=== PATIENT | female | born 1990 | race Caucasian/White ===

== ENCOUNTER → 2017-11-09 11:05 | Outpatient (CLI) | payer BC, SELFPAY ==
[2017-11-09 11:52] LABS: Appearance Urine UA CLEAR; Bilirubin Urine UA NEGATIVE (NEGATIVE); Color Urine UA YELLOW; Glucose Urine UA NEGATIVE (Normal); Ketones Urine UA TRACE (NEGATIVE); Leukocyte Esterase Urine UA NEGATIVE (NEGATIVE); Nitrite Urine UA Negative (Negative); Occult Blood Urine UA NEGATIVE (Negative); Protein Urine UA NEGATIVE (Negative); Specific Gravity Urine UA 1.015 (1.000-1.035); Urobilinogen Urine UA 0.2 E.U./dL (0.2)
[2017-11-09 12:19] LABS: Add Manual Diff / Slide Review NO; Basophils Percent Auto 0.3 % (0-2); Hemoglobin 12.2 g/dL (12.0-16.0); Lymphocytes Percent Auto 8.8 % (25-40); Mean Corpuscular HGB Conc 35.8 % (30-36); Mean Corpuscular Hemoglobin 32.1 PG (26-34); Mean Corpuscular Volume 89.5 fL (80-100); Monocytes Percent Auto 7.8 % (3-14); Neutrophils Absolute Auto 6600 /uL (3000-5900); Neutrophils Percent Auto 82.1 % (50-75); Platelet Count 267 X10^3/uL (150-400); Red Cell Distribution Width 12.8 % (11.6-14.8); White Blood Cell Count 8.1 X10^3/uL (4.5-11.0)
[2017-11-09 12:30] LABS: Hemoglobin A1C% w Est Avg Glu 4.7 % (4.0-6.0)
[2017-11-09 12:38] LABS: Glucose 72 mg/dL (70-100)
[2017-11-09 17:25] LABS: Hepatitis B Surface Antigen NEGATIVE s/c (NEGATIVE); Rubella Antibody IgG 19.6 IU/mL (>15)
[2017-11-09 17:40] LABS: HIV 1 and 2 Antibody NEGATIVE (NEGATIVE); Hep C Virus Ab w/Reflex Quant NEGATIVE s/c (NEGATIVE)
[2017-11-10 14:10] LABS: HSV 2 IGG AB < 0.90 index (< 0.90); HSV1IGG < 0.90 index (< 0.90)
[2017-11-17 10:56] LABS: Rapid Plasma Reagin NON-REACTIVE
== END ==
DX: Z34.82 Encounter for supervision of other normal pregnancy, second trimester (principal)
CPT/HCPCS: 36415; 80055; 81003; 82947; 83036; 86695; 86696; 86703; 86787; 86803; 86850; 86900; 86901; 87077; 87086

== ENCOUNTER → 2017-12-19 11:10 | Outpatient (CLI) | payer BC, SELFPAY ==
[2017-12-20 08:05] LABS: Strep Grp B PCR NEG for Grp B Strep
== END ==
PROVIDERS: Family Provider Family Medicine; PCP Family Medicine
DX: Z34.83 Encounter for supervision of other normal pregnancy, third trimester (principal)
CPT/HCPCS: 87653

== ENCOUNTER 2018-01-12 20:50 | Outpatient (CLI) | payer BC, SELFPAY ==
--- NOTE | 2018-01-13 17:56 | PM.OBTRLD ---
Visit Information Visit Information Date of evaluation: 01/12/18 Primary OB Provider: Blake Griffiths On-call OB Provider: Geeta Penaloza Reason for Evaluation: Yes rule out labor Vital Signs Vital Signs: Blood pressure 121/79, pulse of 100, temperature 97.8? PFSH Medical History ADHD (attention deficit hyperactivity disorder) (Chronic 2007) Anemia (Chronic 2011) Chronic back pain (Chronic 2009) Chronic headaches (Chronic 1995) Hypertension (Chronic 2011) Migraines (Chronic 1995) Raynaud's phenomenon (Chronic 2008) Scoliosis (Chronic 2007) Anesthesia (Resolved) 2 para 2 (Resolved) Hemorrhagic cystitis (Resolved 2012) Proteinuria (Resolved 2011) Surgical History History of third molar tooth extraction (Resolved) Family History Grandfather Diabetes mellitus Stroke Alzheimer's disease Grandmother Diabetes mellitus Heart disease Hypertension Mother Age: 63 Vestibular disorder Grandfather Cancer Grandmother Cancer Brother No problems noted. Father No problems noted. Evaluation Evaluation Baseline heart rate: 125 Variability: Moderate (11-25) monitor accelerations: Present monitor decelerations: Absent Contraction Frequency (minutes): 9 Uterine Contraction Intensity: Mild Category of Tracing: I Cervical dilation (cm): 2 Diagnosis, Plan/Disposition Final Diagnosis (1) 40 weeks gestation of : Current Visit: No Status: Acute Plan/Disposition Plan: Patient did not change her cervix so in prodrome labor she was discharged home with routine precautions. OB Disposition: home
== END 2018-01-12 23:35 | disposition home or self-care (01) ==
LOC: LABOR 20:56 → OB 01-17 08:50
PROVIDERS: Family Provider Family Medicine; PCP Family Medicine; Visit Provider Specialist
DX: Z34.83 Encounter for supervision of other normal pregnancy, third trimester (principal); Z3A.40 40 weeks gestation of pregnancy
CPT/HCPCS: 59025; G0378; G0379

== ENCOUNTER 2018-01-15 21:13 | Inpatient (IN) | payer BC, SELFPAY ==
[2018-01-15] MEDS: LACTATED RINGERS 1,000 ML 100 ML IV (21:45)
[2018-01-15 23:19] LABS: Add Manual Diff / Slide Review NO; Basophils Percent Auto 0.4 % (0-2); Eosinophils Percent Auto 1.6 % (2-4); Hematocrit 31.4 % (36-46); Lymphocytes Percent Auto 8.8 % (25-40); Mean Corpuscular HGB Conc 35.1 % (30-36); Mean Corpuscular Hemoglobin 31.4 PG (26-34); Mean Corpuscular Volume 89.3 fL (80-100); Monocytes Percent Auto 10.4 % (3-14); Neutrophils Absolute Auto 6400 /uL (3000-5900); Neutrophils Percent Auto 78.8 % (50-75); Platelet Count 201 X10^3/uL (150-400); Red Blood Cell Count 3.51 X10^6/uL (4.0-5.2); Red Cell Distribution Width 12.8 % (11.6-14.8); White Blood Cell Count 8.1 X10^3/uL (4.5-11.0)
[2018-01-16] MEDS: OXYTOCIN 10 UNIT/ML VIAL IM (00:05)
--- NOTE | 2018-01-16 00:25 | P.HPOB_ITS ---
OB HPI Date/Time Date of admission: 01/16/18 Date Patient Seen: 01/16/18 Time Patient Seen: 23:30 History of Present Condition Chief complaint: eval of labor : 4 Para: 2 Estimated Date of Delivery: 01/18/18 Estimated Gestational Age (weeks): 39w4d Narrative: Betsy Van is a 27 year old at 39w4d who presented in active labor with SROM at home. The pt reports feeling a large gush of fluid around 8:45pm. She had been having contractions for the past several days , but they significantly increased in intensity and frequency after the gush. No vaginal bleeding. The pt has been feeling her baby move regularly. History of Present care: limited care, initiated at week # (30) and number of visits (6) Dating criteria: based on LMP only Ultrasounds: normal mid trimester US Obstetrical complications: none Medical complications: other Narrative: Hx of pre-eclampsia Hx of benign heart murmur Bicornuate uterus Raynaud's disease Fibromyalgia Preadmission Labs Blood type: A (+) positive -: Antibody screen: negative, GBS status: negative, HBsAG: negative, HIV: negative, HSV 1: negative, HSV 2: negative and RPR/VDLR: negative -: Chlamydia screen: not detected and Gonorrhea screen: not detected -: Rubella: immune and Varicella: immune HCT: 34 HCAB: negative PAP: Normal Fasting blood glucose: 72 Prior (ies) History: 01/2010 - SAB 10/2011 - 39wk IOL for pre-eclampsia, , 8lb1oz girl 11/2013 - 41wk IOL, , 9lb8oz girl Evaluation Evaluation Baseline heart rate: 120 Variability: Moderate (11-25) monitor accelerations: Present monitor decelerations: Absent Contraction Frequency (minutes): 2 Uterine Contraction Intensity: Strong/Firm Category of Tracing: I Cervical dilation (cm): 4 Cervical effacement (%): 90 station: -1 Laboratory results: Laboratory Tests 01/15/18 01/15/18 21:45 21:45 WBC 8.1 RBC 3.51 L Hgb 11.0 L Hct 31.4 L MCV 89.3 MCH 31.4 MCHC 35.1 RDW 12.8 Plt Count 201 Neut % (Auto) 78.8 H Lymph % (Auto) 8.8 L [place] % (Auto) 10.4 Eos % (Auto) 1.6 L Baso % (Auto) 0.4 Neut # (Auto) 6400 H Blood Type A Positive Antibody Screen Negative Comments: grossly ruptured with clear fluid PFSH Medical History ADHD (attention deficit hyperactivity disorder) (Chronic 2007) Anemia (Chronic 2011) Chronic back pain (Chronic 2009) Chronic headaches (Chronic 1995) Hypertension (Chronic 2011) Migraines (Chronic 1995) Raynaud's phenomenon (Chronic 2008) Scoliosis (Chronic 2007) Anesthesia (Resolved) 2 para 2 (Resolved) Hemorrhagic cystitis (Resolved 2012) Proteinuria (Resolved 2011) Surgical History History of third molar tooth extraction (Resolved) Family History Grandfather Diabetes mellitus Stroke Alzheimer's disease Grandmother Diabetes mellitus Heart disease Hypertension Mother Age: 63 Vestibular disorder Grandfather Cancer Grandmother Cancer Brother No problems noted. Father No problems noted. Meds Home Medications Medication Instructions Recorded Confirmed Type FERROUS SULFATE (SLOW IRON~) 160 mg PO QDAY #0 08/22/12 11/09/17 History magnesium amino acid chelate 100 mg PO #0 03/03/16 11/09/17 History dextroamphetamine-amphetamine 10 mg PO BID #60 tab 02/23/17 Rx 1 tab PO DAILY 11/09/17 11/09/17 History vitamin,calcium,dhrrqegt-wypk-nodoo acid tablet Allergies Allergy/AdvReac Type Severity Reaction Status Date / Time Penicillins Allergy Mild RASH Unverified 11/09/17 11:06 Sulfa (Sulfonamide Allergy Mild RASH Unverified 11/09/17 11:06 Antibiotics) Exam Narrative Exam Narrative: Gen: NAD, laying comfortably in bed, appears well CV: RRR, no murmurs Resp: clear to auscultation bilaterally Abd: soft, nondistended, gravid Ext: trace edema Objective Labs Result Diagrams: 01/15/18 21:45 Labs: Laboratory Results - last 24 hr 01/15/18 01/15/18 21:45 21:45 WBC 8.1 RBC 3.51 L Hgb 11.0 L Hct 31.4 L MCV 89.3 MCH 31.4 MCHC 35.1 RDW 12.8 Plt Count 201 Neut % (Auto) 78.8 H Lymph % (Auto) 8.8 L [place] % (Auto) 10.4 Eos % (Auto) 1.6 L Baso % (Auto) 0.4 Neut # (Auto) 6400 H Blood Type A Positive Antibody Screen Negative Assessment and Plan (1) 39 weeks gestation of : Current visit: Yes Status: Acute Plan: Plan: 27yo at 39w4d who presented in active labor with SROM. No complications with , was late to care. GBS negative, Rh positive. - Expectant management, anticipate - Epidural for pain control - FHT reassuring - GBS negative, no prophylaxis indicated
--- NOTE | 2018-01-16 00:25 | PM.OBPRVD ---
Delivery date: 01/15/18 Intrapartal events: None Induction method: none Delivery monitor: external FHT Route of delivery: Episiotomy description: None Laceration description: None Estimated blood loss (mL): 300 Anesthesia type: Epidural Complications: None Narrative: PROCEDURE: at 39w4d presented in active labor with SROM at home and was admitted to Labor and Delivery. The patient progressed through the 1st stage over 2.5 hours. Pain was controlled with an epidural. The patient progressed through the 2nd stage over 40 minutes and delivered a viable male infant with APGARs 9/9 at 23:58 via . The cord was cut and clamped after it stopped pulsing. The perineum and vagina were inspected with no lacerations noted. PREPROCEDURE DIAGNOSIS: Intrauterine at 39w4d GBS negative RH positive POSTPROCEDURE DIAGNOSIS: Intrauterine at 39w4d, delivered Same as preprocedure ROM APPEARANCE: Clear BABY A DELIVERY TIME: 23:58 BABY A WEIGHT: 8lb3oz BABY A NUCHAL CORD: None PLACENTA DELIVERY TIME: 00:02 PLACENTA APPEARANCE: Intact Baby 1: Infant gender: Male Presentation: vertex position: Right Occiput Anterior Placenta delivery description: Spontaneous cord vessel description: 3 Vessels score (1 min): 9 score (5 min): 9 Plan for aftercare: Normal care support
[2018-01-16 01:18] VITALS: BP 125/85
[2018-01-16] MEDS: IBUPROFEN 600 MG TABLET PO ×3 (05:00→18:01)
--- NOTE | 2018-01-16 08:49 | PM.OBPN.1 ---
Subjective - OB Interval history: Patient is a 27-year-old three now para three status post spontaneous vaginal delivery of a live-born male infant. she has done well. She remains afebrile stable vital signs and has been progressively L amended and ambulated. She has minimal bleeding and minimal pain Patient comments: no complaints [place] baby status: doing well [place] feeding status: exclusively breast feeding Narrative: Doing well Date Patient Seen: 01/16/18 Time Patient Seen: 08:50 Exam Vital Signs (past 8 hours): - 01/16/18 01:18 Blood Pressure 125/85 Narrative Exam Narrative: Fundus U minus two Lochia scant Objective Labs Result Diagrams: 01/15/18 21:45 Labs: Laboratory Results - last 24 hr 01/15/18 01/15/18 21:45 21:45 WBC 8.1 RBC 3.51 L Hgb 11.0 L Hct 31.4 L MCV 89.3 MCH 31.4 MCHC 35.1 RDW 12.8 Plt Count 201 Neut % (Auto) 78.8 H Lymph % (Auto) 8.8 L [place] % (Auto) 10.4 Eos % (Auto) 1.6 L Baso % (Auto) 0.4 Neut # (Auto) 6400 H Blood Type A Positive Antibody Screen Negative Assessment & Plan (1) 39 weeks gestation of : Status: Acute Current Visit: Yes Plan day: 1 plan OB: routine care Comments: Doing well no problems Ready for discharge tomorrow morning Time Spent With Patient Total time spent is greater than 50% in coordination of care (as documented) at patient's floor/unit and/or counseling patient: less than 15 minutes
[2018-01-17] MEDS: IBUPROFEN 600 MG TABLET PO ×2 (00:44→06:42)
--- NOTE | 2018-01-17 08:04 | P.DS_ITS ---
Discharge Providers Date of admission: 01/15/18 21:13 Primary care physician: Tavo Garcia MD Consults: 01/16/18 04:57 Consult to Industrial Economics Professor Routine Comment: Discharge provider: Blake Griffiths MD Discharge Date: 01/17/18 Summary Date Patient Seen: 01/17/18 Time Patient Seen: 08:02 Hospital Course: The patient is a 27-year-old white female who presented in active labor. Patient had a rapid labor and spontaneous vaginal delivery over an intact perineum without tears. Post delivery she did well. She remained afebrile with stable vital signs and was progressively alimented and ambulated. Peripartum Data Delivery Method: Natural Vaginal Laceration description: None Procedures: Spontaneous vaginal delivery complications: none Discharge Diagnosis (1) 39 weeks gestation of : Status: Acute Status at Discharge Cognitive/behavioral status at discharge: Normal Functional status at discharge: independent ambulation Overall status at discharge: patient is back to baseline Time Spent with Patient Total time spent providing and/or coordinating discharge services: Less than 30 minutes Objective Labs Result Diagrams: 01/15/18 21:45 Discharge Plan Discharge Plan Patient Disposition: Home Discharge Med Rec/Prescriptions Prescriptions: New ibuprofen 600 mg Tablet 600 mg PO Q6HR PRN (Reason: As Needed For Fever/Mild Pain) Qty: 20 RF: 0 oxycodone-acetaminophen [Percocet] 5-325 mg tablet 1 tab PO Q4-6H PRN (Reason: pain) Qty: 20 RF: 0 Discontinued magnesium amino acid chelate 100 MG tablet 100 mg PO DAILY Qty: 0 RF: 0 Follow up/Referrals: Blake Griffiths MD [Physician] - 1 Month (February 13Tuesday, at 11am for 4 week post check with Dr Griffiths) Provider Discharge Instructions Diet: Diet as Tolerated Activity: up ad todd/may shower Skin/Wound/Dressing Care Report to your healthcare provider any signs of infection, such as:: chills, fever, increased pain, unusual drainage and unusual redness Discharge Data Primary Care Provider: Tavo Garcia Attending Provider: Jeannie Hickey Admit Date/Time: 01/15/18 21:13
[2018-01-17 09:14] VITALS: BP 123/86; PULSE 77; RESP 16; TEMP 36.7
== END 2018-01-17 11:01 | disposition home or self-care (01) | DRG 807 ==
PROVIDERS: Admitting Provider Family Medicine; Family Provider Family Medicine; PCP Family Medicine; Visit Provider Family Medicine
DX: O80 Encounter for full-term uncomplicated delivery (principal); Z37.0 Single live birth; Z3A.39 39 weeks gestation of pregnancy
CPT/HCPCS: 01967; 59050; 59410; 85025; 86850; 86900; 86901; G0379; J2590

== ENCOUNTER → 2022-07-07 09:48 | Outpatient (CLI) | payer OTHER, SELFPAY ==
[2022-07-07 11:21] LABS: Add Manual Diff / Slide Review NO; Basophils Absolute Auto 0 /uL (0-100); Basophils Percent Auto 0.3 % (0-2); Eosinophils Absolute Auto 100 /uL (0-450); Eosinophils Percent Auto 1.7 % (2-4); Hemoglobin 12.2 g/dL (12.0-16.0); Lymphocytes Absolute Auto 500 /uL (1100-4500); Lymphocytes Percent Auto 6.1 % (25-40); Mean Corpuscular HGB Conc 34.9 % (30-36); Mean Corpuscular Hemoglobin 30.9 PG (26-34); Mean Corpuscular Volume 88.4 fL (80-100); Monocytes Absolute Auto 600 /uL (0-900); Monocytes Percent Auto 8.2 % (3-14); Neutrophils Absolute Auto 6200 /uL (1500-7000); Neutrophils Percent Auto 83.7 % (50-75); Platelet Count 316 X10^3/uL (150-400); Red Blood Cell Count 3.96 X10^6/uL (4.0-5.2); Red Cell Distribution Width 12.5 % (11.6-14.8); White Blood Cell Count 7.4 X10^3/uL (4.5-11.0)
[2022-07-08 11:14] LABS: RPR Screen Non Reactive (Non Reactive)
[2022-07-08 21:48] LABS: Hepatitis B Surface Antigen NEGATIVE s/c (NEGATIVE); Rubella Antibody IgG 23.6 IU/mL (>15)
[2022-07-08 22:03] LABS: HIV 1 & 2 Ab/Ag 4th Gen Combo NEGATIVE (NEGATIVE); Hep C Virus Ab w/Reflex Quant NEGATIVE s/c (NEGATIVE)
[2022-07-10 06:39] LABS: Varicella IgG Antibody 775 index (Immune >165)
== END ==
PROVIDERS: Referring Provider Specialist; Visit Provider Specialist
DX: Z34.81 Encounter for supervision of other normal pregnancy, first trimester (principal)
CPT/HCPCS: 36415; 80055; 86787; 86803; 86850; 86900; 86901; 87389

== ENCOUNTER → 2022-09-01 14:23 | Outpatient (CLI) | payer OTHER, SELFPAY ==
[2022-09-04 00:22] LABS: AFP, Serum 34.8 ng/mL (.); Estriol, Free 0.97 ng/mL (.); Inhibin A, Dimeric 92.72 pg/mL (.); Inhibin A, MoM 0.71 (.); Maternal Ethnicity Caucasian (.); Maternal Weight 201 lbs (.); Number of Fetuses No (.); OSBR Risk 1 IN 7366 (.); Results Report (.); Test Results *Screen Negative* (.); hCG, MoM 0.88 (.); hCG, Serum 28865 mIU/mL (.)
== END ==
PROVIDERS: Referring Provider Specialist; Visit Provider Specialist
DX: Z34.82 Encounter for supervision of other normal pregnancy, second trimester (principal); Z3A.16 16 weeks gestation of pregnancy
CPT/HCPCS: 36415; 82105; 82677; 84702; 86336

== ENCOUNTER → 2022-09-29 09:55 | Outpatient (CLI) | payer OTHER, SELFPAY ==
--- NOTE | 2022-09-29 09:56 | DI.US.S_ITS ---
PROCEDURE: US OB >= 14 WEEKS FETUS INDICATIONS: ANATOMY OUTSIDE/PRIOR DATING DATA: Last menstrual period (LMP): 05/10/2022. LMP-based estimated date of delivery (COY): 02/14/2023. First dating scan (date and location): 07/07/2022. Estimated date of delivery (OCY) from first dating scan: 02/09/2023. The calculations are made using the clinical COY of 02/14/2023. TECHNIQUE: Real-time scanning was performed of the fetus, with image documentation and biometric measurements. Endovaginal scanning: Not performed COMPARISON: [facility], , OB >= 14 WEEKS FETUS, 01/10/2018, 13:55. FINDINGS: General: A single living intrauterine gestation is present. Presentation: Breech. Placenta: Placental position is right fundal , without previa. Amniotic fluid index: 19.4 cm, normal range is 5-24 cm. Single deepest vertical pocket is 11.1 cm. heart rate: 160 beats per minute. Maternal cervical canal: 3.9 cm long. Normal lower limit is 2.5 cm. biometrics: Biparietal diameter: 5.1 centimeters, 21 weeks 3 days Head circumference: 19.7 centimeters, 21 weeks 6 days Abdominal circumference: 17.9 centimeters, 20 weeks 5 days Femur length: 3.5 centimeters, 21 weeks Clinically estimated gestational age: 20 weeks 2 days Composite gestational age from present scan: 21 weeks 5 days Estimated weight and percentile: 460 grams, 99th percentile Anatomic survey: Neuro: Ventricles are non-dilated at less than 10 mm. Cisterna magna is normal at 3-11 mm. Cerebellum is normal in size and morphology. Nuchal skin fold: Normal at less than 6 mm between 14-21 weeks gestational age. Face: Nose and lips, facial profile are normal. Spine: No evidence for spina bifida. Heart: 4-chambered heart is present, with normal ventricular outflow tracts. Diaphragm: Diaphragm is intact. Stomach: Left-sided stomach is present. Kidneys: No hydronephrosis. Normal is less than 5 mm in 2nd trimester, less than 7 mm in 3rd trimester. Cord: 3-vessel cord has orthotopic insertion. Bladder: Normal in size. Extremities: All 4 extremities identified. IMPRESSION: Single living intrauterine at 20 weeks 2 days, COY of 02/14/2023. Estimated weight of 460 grams, 99th percentile. Otherwise, normal anatomy survey. We strive to produce accurate, complete, and clear reports of imaging services. To assist us in improving patient care, this report was composed using standard report templates and voice recognition software. Therefore, it may contain abnormal punctuation, insertions and/or omissions. Occasional wrong-word or sound-alike substitutions may occur. Though we review the report and make efforts to correct it, we do recommend that the report be read carefully in proper context to recognize any text inaccuracies. Dictated by: Fabian Villafana M.D. on 09/29/2022 at 12:49 Approved by: Fabian Villafana M.D. on 09/29/2022 at 12:51
== END ==
PROVIDERS: Referring Provider Specialist; Visit Provider Specialist
DX: Z34.82 Encounter for supervision of other normal pregnancy, second trimester (principal); Z3A.20 20 weeks gestation of pregnancy
CPT/HCPCS: 76811

== ENCOUNTER → 2023-01-19 16:24 | Outpatient (CLI) | payer OTHER, SELFPAY ==
[2023-01-20 14:53] LABS: Strep Grp B PCR NEG for Grp B Strep
== END ==
PROVIDERS: Visit Provider Student in an Organized Health Care Education/Training Program
DX: Z34.83 Encounter for supervision of other normal pregnancy, third trimester (principal); Z3A.36 36 weeks gestation of pregnancy
CPT/HCPCS: 87653

== ENCOUNTER → 2023-01-19 16:46 | Outpatient (CLI) | payer OTHER, SELFPAY ==
[2023-01-19 18:02] LABS: Hemoglobin 11.8 g/dL (12.0-16.0)
[2023-01-19 18:26] LABS: GTT (PREG) 1 Hour PP 50gm Dose 111 mg/dL (76-139)
== END ==
PROVIDERS: Referring Provider Specialist; Visit Provider Specialist
DX: Z34.83 Encounter for supervision of other normal pregnancy, third trimester (principal); Z3A.36 36 weeks gestation of pregnancy
CPT/HCPCS: 36415; 82950; 85014; 85018; 87653

== ENCOUNTER → 2023-01-31 10:15 | Outpatient (CLI) | payer OTHER, SELFPAY ==
--- NOTE | 2023-01-31 | DI.US.S_ITS ---
PROCEDURE: US OB LIMITED INDICATIONS: GROWTH CHECK OUTSIDE/PRIOR DATING DATA: Last menstrual period (LMP): 05/10/2022. LMP-based estimated date of delivery (COY): 02/14/2023. First dating scan (date and location): 07/07/2022. Estimated date of delivery (COY) from first dating scan: 02/09/2023. The calculations are made using the clinical COY of 02/14/2023. TECHNIQUE: Real-time scanning was performed of the fetus, with image documentation and biometric measurements. Endovaginal scanning: Not performed COMPARISON: None. FINDINGS: General: A single living intrauterine gestation is present. Presentation: Vertex. Placenta: Placental position is right fundal , without previa. Amniotic fluid index: 10.2 cm, normal range is 5-24 cm. Single deepest vertical pocket is 4.1 cm. heart rate: 155 beats per minute. Maternal cervical canal not well seen biometrics: Biparietal diameter: 9.4 cm, 38 weeks 2 days Head circumference: 34.1 cm, 39 weeks 3 days Abdominal circumference: 35.2 cm, 39 weeks 1 day Femur length: 7.4 cm, 37 weeks 6 days Clinically estimated gestational age: 38 weeks 0 days Composite gestational age from present scan: 38 weeks 5 days Estimated weight and percentile: 3587 g, 88th percentile. Other: Not applicable. IMPRESSION: Single living intrauterine at 38 weeks 0 days, COY of 02/14/2023. Estimated weight of 3587 g, 87th percentile. We strive to produce accurate, complete, and clear reports of imaging services. To assist us in improving patient care, this report was composed using standard report templates and voice recognition software. Therefore, it may contain abnormal punctuation, insertions and/or omissions. Occasional wrong-word or sound-alike substitutions may occur. Though we review the report and make efforts to correct it, we do recommend that the report be read carefully in proper context to recognize any text inaccuracies. Dictated by: Fabian Villafana M.D. on 01/31/2023 at 12:36 Approved by: Fabian Villafana M.D. on 01/31/2023 at 12:38
== END ==
PROVIDERS: Referring Provider Student in an Organized Health Care Education/Training Program; Visit Provider Student in an Organized Health Care Education/Training Program
DX: O26.843 Uterine size-date discrepancy, third trimester (principal); Z3A.38 38 weeks gestation of pregnancy
CPT/HCPCS: 76815

== ENCOUNTER 2023-02-08 06:50 | Inpatient (IN) | payer OTHER, SELFPAY ==
--- NOTE | 2023-02-08 10:35 | P.HPOB_ITS ---
OB HPI Date/Time Date of admission: 02/08/23 Date Patient Seen: 02/08/23 Time Patient Seen: 10:00 History of Present Condition Chief complaint: INDUCTION COY Calculator Estimated Delivery Date Method Current WG Current Estimate 02/14/23 LMP (Certain) 39w 1d Other Estimates 02/09/23 Ultrasound #1 39w 6d : 5 Para: 3 Narrative: here for IOL. Hx of pre-eclampsia with first (different FOB), bicornuate uterus and hx of precipitous delivery last baby. growth has been large, last US at 38 weeks measuring 87th percentile. care: good care Obstetrical complications: other (hx of pre-eclampsia, bicornuate uterus) Medical complications OB: none Indications Indication for induction OB: history of rapid labor Preadmission Labs Last OB Lab Results: Blood Type A Positive 07/07/22 10:06 Antibody Screen Negative 07/07/22 10:06 Hematocrit 34.0 % (36-46) L 01/19/23 17:50 Hemoglobin 11.8 g/dL (12.0-16.0) L 01/19/23 17:50 Hepatitis B Surface Antigen Negative s/c (NEGATIVE) 07/07/22 10 :06 Hepatitis C Antibody Negative s/c (NEGATIVE) 07/07/22 10:06 Rubella Antibody 23.6 IU/mL (>15) 07/07/22 10:06 Varicella-Zoster IgG Antibody 775 index (Immune >165) 07/07/22 10:06 Glucose 1 Hour 111 mg/dL (76-139) 01/19/23 17:50 Group B Streptococcus (PCR) Neg for grp b strep 01/19/23 16:24 Glucose Tolerance Testin hr Prior (ies) Past Pregnancies Del. Date GA/Weeks Labor Lgth Wt Sex Route Outcome Anesthesia Place Delv Breastfeed Preg Comp Name 10/21/11 39 20 8 lb 1 oz Female vaginal live - full term [place], [place] 6 months pre-eclampsia none Ernesto 12/13/13 41+ 16 9 lb 8 oz Female vaginal live - full term [place], [place] 1 year none Jannie 07/16/15 6-7 spontaneous 01/15/18 39+ 4 8 lb 2 oz Male vaginal live - full term [facility] 2 years none Alessio Delivery Date: 10/21/11 Last Updated by: Fifi Prater RN anemia Delivery Date: 07/16/15 Last Updated by: Fifi Prater RN passed spontaneously, no complications Evaluation Evaluation Baseline heart rate: 125 Variability: Average (6-10) monitor accelerations: Present Monitor Decelerations: Absent Category of Tracing: Reactive Status: Category l Dilation (cm): 2 Dilation: 1-2 cm Position of cervix: posterior [facility] Medical History (Updated 01/27/23 @ 09:17 by Pearl Martinez DO) Headache (~1996) Benign heart murmur (~1988) Bicornate uterus Preeclampsia Fibromyalgia (~2015) Encounter for IUD removal 2 para 2 Raynaud's phenomenon (2008) Migraines (1995) Chronic headaches (1995) ADHD (attention deficit hyperactivity disorder) (2007) Scoliosis (2007) Chronic back pain (2009) Anemia (2011) Hemorrhagic cystitis (2012) Proteinuria (2011) Hypertension (2011) Surgical History (Updated 07/24/22 @ 21:03 by Mary Yang) Anesthesia History of third molar tooth extraction (~2003) Family History (Updated 07/24/22 @ 21:05 by Mary Yang) Grandfather Diabetes mellitus Stroke Alzheimer's disease Grandmother Diabetes mellitus Heart disease Hypertension Mother Age: 68 Vestibular disorder Grandfather Cancer Grandmother Cancer Brain cancer Brother TBI (traumatic brain injury) Father Family estrangement Social History marital status: number of children: 3 household members: spouse and children lives independently: Yes caregiver/support person: Yes housing: house pets and animals: Yes (dog, manages feces) education level: college (Associate's degree) occupational status: unemployed current occupational exposures/hazards: No special rigoberto needs: No travel history: over 6 months ago seatbelt use: always water heater temp set < 120 deg: Yes working smoke detector in home: Yes fire extinguisher in home: Yes carbon monox detector in home: Yes firearms in home: Yes firearms unloaded and locked: Yes do you feel safe at home: Yes Smoking Status: Former smoker (as a teenager) second hand exposure: No alcohol intake: former (rarely when not ) substance use type: does not use during the past year weight has: remained stable well-balanced diet: daily or most days daily servings fruits/ve or more times/day caffeine: Yes (aware of 200mg limit) Type(s) of exercise: aerobic and weight lifting frequency: 3-4 times per week Meds Home Medications and Allergies Home Medications Medication Instructions Recorded Confirmed Type prenat.vits,vero,uyh-dpdd-nqhbh 1 tab PO DAILY 06/14/22 02/03/23 History Allergies Allergy/AdvReac Type Severity Reaction Status Date / Time Penicillins Allergy Mild RASH Verified 02/03/23 08:59 Sulfa (Sulfonamide Allergy Mild RASH Verified 02/03/23 08:59 Antibiotics) Assessment and Plan Assessment and Plan Assessment and Plan narrative: admitted for IOL for hx of precipitious delivery and LGA fetus. -2 cm dilated, baby high in pelvis, confirmed vertex with BSUS -will start pitocin, plan for
[2023-02-08] MEDS: OXYTOCIN PREMIX 30 UNIT/500 ML PLAST..BAG IV (10:41)
[2023-02-08] MEDS: LACTATED RINGERS 1,000 ML 100 ML IV (10:41)
[2023-02-08 11:03] VITALS: BP 129/82
[2023-02-08 11:20] LABS: Add Manual Diff / Slide Review NO; Basophils Absolute Auto 0 /uL (0-100); Basophils Percent Auto 0.4 % (0-2); Eosinophils Absolute Auto 500 /uL (0-450); Eosinophils Percent Auto 4.5 % (2-4); Hematocrit 34.3 % (36-46); Hemoglobin 12.2 g/dL (12.0-16.0); Lymphocytes Absolute Auto 600 /uL (1100-4500); Lymphocytes Percent Auto 5.2 % (25-40); Mean Corpuscular HGB Conc 35.5 % (30-36); Mean Corpuscular Hemoglobin 32.9 PG (26-34); Mean Corpuscular Volume 92.6 fL (80-100); Monocytes Absolute Auto 900 /uL (0-900); Neutrophils Absolute Auto 8900 /uL (1500-7000); Neutrophils Percent Auto 81.9 % (50-75); Platelet Count 206 X10^3/uL (150-400); White Blood Cell Count 10.9 X10^3/uL (4.5-11.0)
--- NOTE | 2023-02-08 16:44 | PM.OBPNLAB ---
Date/Time Date Patient Seen: 02/08/23 Time Patient Seen: 04:45 Pain Control Comments: Requesting epidural Pelvic Exam Dilation (cm): 3 Effacement (%): 100 station: -1 Amniotic membrane status: Bulging Contractions Contractions on admission: none Monitor mode: External Pitocin rate (mU/min): 15 Contraction frequency (min): 3 Contraction duration (min): 1 Contraction pattern: Regular Contraction intensity: Strong/Firm Status status: Category l Heart Rate Baseline: 145 Monitor Accelerations: Present Monitor Decelerations: Absent Monitor Variability: Moderate Assessment and Plan Assessment: induction ongoing Plan: continuous present management Comments: Obtaining epidural, will then AROM.
[2023-02-08] MEDS: FENT 2MCG/ML BUPIV 0.125% EPI 200 MCG/100 ML PLAST..BAG 8 MCG EPIDURAL (17:05)
--- NOTE | 2023-02-08 17:07 | PM.AN.REGBLK ---
Regional Block Pre-procedure Procedure: Continuous Lumbar Epidural for L&D Attending OB provider: Digna Mistry PMH/ROS narrative: see record Hx: No personal or family history of anesthesia problems. PSH/Anesthesia history narrative: see pre op record ASA Class: II Labs: Hct 34.3 % (36-46) L 02/08/23 08:00 Plt Count 206 X10^3/uL (150-400) 02/08/23 08:00 Medications: Current Medications Generic Name Dose Route Start Last Admin Trade Name Freq PRN Reason Stop Dose Admin Acetaminophen 650 mg 02/08/23 09:05 Acetaminophen 325 Mg Tablet PO Q4HR PRN Fever/Mild Pain (1-3) Calcium Carbonate 1,000 mg 02/08/23 10:11 Calcium Carbonate 500 Mg Tab PO Q4HR PRN Dyspepsia Carboprost Tromethamine 250 mcg 02/08/23 10:11 Carboprost 250 Mcg/Ml Ampul IM Q90M PRN Bleeding Oxytocin/Lactated Ringer's 30 unit in 500 mls @ 1 mls/hr 02/08/23 10:15 02/08/23 10:41 Oxytocin Premix IV 1 milliunit/min TITRATE VAN 1 mls/hr Administration Protocol 1 MILLIUNIT/MIN Lactated Ringer's 1,000 mls @ 100 mls/hr 02/08/23 10:15 02/08/23 10:41 Lactated Ringers IV 100 mls/hr CONT VAN Administration Lactated Ringer's 1,000 mls @ 100 mls/hr 02/08/23 08:45 Lactated Ringers IV CONT VAN Oxytocin/Lactated Ringer's 30 unit in 500 mls @ 200 mls/hr 02/08/23 10:11 Oxytocin Premix IV CONT PRN Bleeding Protocol Tranexamic Acid 1,000 mg/ 100 mls @ 200 mls/hr 02/08/23 10:11 Sodium Chloride IV NOW PRN Bleeding Lidocaine HCl 20 ml 02/08/23 10:11 Lidocaine 1% 20 Ml INJ INTRA-OP PRN Post Delivery Methylergonovine Maleate 0.2 mg 02/08/23 10:11 Methylergonovine 0.2 Mg Tablet PO Q6HR PRN Heavy Bleeding Methylergonovine Maleate 0.2 mg 02/08/23 10:11 Methylergonovine 0.2 Mg/Ml Vial IM NOW PRN Bleeding Misoprostol 800 mcg 02/08/23 10:11 Misoprostol 200 Mcg Tablet IA NOW PRN Bleeding Misoprostol 400 mcg 02/08/23 10:11 Misoprostol 200 Mcg Tablet SL NOW PRN Bleeding Morphine Sulfate 2 mg 02/08/23 10:11 Morphine 2 Mg/Ml Inj IV Q4HR PRN Pain, Moderate (4-6) Naloxone HCl 0.2 mg 02/08/23 10:11 Naloxone 0.4 Mg/Ml Vial IV Q2MIN PRN Opiate Reversal Ondansetron HCl 4 mg 02/08/23 10:11 Ondansetron 4 Mg/2 Ml Inj IV Q4HR PRN Nausea And Vomiting Oxytocin 10 unit 02/08/23 10:11 Oxytocin 10 Unit/Ml Vial IM NOW PRN Bleeding Allergies: Allergies Allergy/AdvReac Type Severity Reaction Status Date / Time Penicillins Allergy Mild RASH Verified 02/03/23 08:59 Sulfa (Sulfonamide Allergy Mild RASH Verified 02/03/23 08:59 Antibiotics) Procedure Insertion date: 02/08/23 Insertion time: 17:00 Prep/Local: betadine x3 (CHD) and 1% lidocaine Interspace: L4 Patient position: sitting Needle: 18 gauge Rosalind Loss of resistance with: saline MONSERRAT at (cm): 8 Catheter placed at SKIN (cm): 12 Catheter in SPACE (cm): 4 Insertion: No CSF, No Blood, No Paresthesia with insertion, No Paresthesia with injection and No Test dose reaction Initial Medications TEST DOSE time: 17:00 TEST DOSE: 1.5% lidocaine with epinephrine 1:200k (mL): 4 BOLUS DOSE time: 17:05 BOLUS DOSE (mL): 8 BOLUS DOSE med: other (.125% Bup with 2mcg/ml fent) Infusion INFUSION: 0.125% bupivacaine and with fentanyl 2 mcg/mL Initial rate (mL/hr): 8 Post-procedure Anesthesia time START: 16:50 Anesthesia time END: 17:45 Post-procedure Anesthesia Assessment: Yes CV function: HR/BP stable, Yes Resp function: RR/sat/airway adequate, Yes Post-op hydration adequate, Yes Pain control adequate, Yes Nausea & vomiting absent, Yes Temperature > 36 C, Yes Mental status appropriate and Yes Anesthesia complications
[2023-02-08] MEDS: miSOPROStoL 200 MCG TABLET 800 MCG PR (17:51)
--- NOTE | 2023-02-08 18:07 | PM.OBPRVD ---
Labor & Delivery Delivery date: 02/08/23 Intrapartal Events: None Induction method: per pitocin protocol Delivery augmentation: rupture of membranes Delivery monitor: external FHT Route of delivery: Episiotomy description: None L&D Laceration Description: None Quantitative Blood Loss: 350 Anesthesia Type: Epidural Complications: none Narrative: Patient felt constant pressure following epidural placement. Provider arrived to the room wtih bulging bag present from vagina. Set up for delivery. AROM. Patient with effective pushing over two contractions. . Placenta delivered spontaneously. No lacerations. Misoprostol 800 mcg given rectally. Baby 1: Infant gender: Male Presentation: vertex Position: Right Occiput Anterior Placenta delivery description: Spontaneous Cord Vessel Description: 3 Vessels score (1 min): 9 score (5 min): 9 Plan for aftercare: Routine care
[2023-02-08] MEDS: ACETAMINOPHEN 325 MG TABLET 650 MG PO (19:59)
[2023-02-08] MEDS: DERMOPLAST SPRAY 20% 60 ML 1 SPRAY TOP (20:00)
[2023-02-08] MEDS: LANOLIN OINT 7 GM 1 APPLIC TOP (20:00)
[2023-02-08] MEDS: IBUPROFEN 600 MG TABLET PO (20:00)
[2023-02-09] MEDS: ACETAMINOPHEN 325 MG TABLET 650 MG PO ×3 (02:01→15:09)
[2023-02-09] MEDS: IBUPROFEN 600 MG TABLET PO ×3 (02:01→15:09)
[2023-02-09] MEDS: OXYCODONE IR 5 MG TABLET PO ×2 (04:02→11:06)
[2023-02-09] MEDS: PRENATAL VIT,CALC/IRON/FOLIC 1 TABLET 1 TAB PO (08:04)
--- NOTE | 2023-02-09 09:00 | PM.OBDS.1 ---
Discharge Providers Provider Date of admission: 02/08/23 06:50 Discharge Date: 02/09/23 Consults: 02/08/23 10:11 Consult to Anesthesiology Urgent Comment: Consulting Provider: Anesthesiologist Reason for consultation: Epidural 02/09/23 18:04 Consult to Supervisor Forming And Tempering Routine Comment: Discharge provider: Symone Cutler MD Summary Hospital Course Date Patient Seen: 02/09/23 Time Patient Seen: 07:45 Diagnoses: Hospital Course: presented for IOL for LGA fetus. Routine care. labs normal. Induced with pitocin, AROM. without complications. No lacerations. Recovering well morning after delivery. , mild cramping with latch. Minimal vaginal bleeding. Safe for discharge. Discussed routine follow up. Peripartum Data Infant Delivery Method: Natural Vaginal Laceration Description: None complications: none Discharge Diagnosis (1) (normal spontaneous vaginal delivery): Start Date: 02/09/23 Start Time: 09:04 Status: Acute Status at Discharge Cognitive/behavioral status at discharge: at baseline, oriented Functional status at discharge: independent ambulation Overall status at discharge: patient is back to baseline Time Spent with Patient Time attestation: Total time spent providing and/or coordinating discharge services: Time spent: Greater than 30 minutes Objective Labs 02/08/23 08:00 Labs: Laboratory Results - last 24 hr 02/08/23 08:00 WBC 10.9 RBC 3.70 L Hgb 12.2 Hct 34.3 L MCV 92.6 MCH 32.9 MCHC 35.5 RDW 13.0 Plt Count 206 Neut % (Auto) 81.9 H Lymph % (Auto) 5.2 L [place] % (Auto) 8.0 Eos % (Auto) 4.5 H Baso % (Auto) 0.4 Neut # (Auto) 8900 H Lymph # (Auto) 600 L [place] # (Auto) 900 Eos # (Auto) 500 H Baso # (Auto) 0 Blood Type A Positive Antibody Screen Negative Exam Const General: cooperative, healthy appearing and comfortable Eyes General: appearance normal, both eyes and all related structures Neck Neck: normal visual inspection Resp Effort & Inspection: normal respiratory effort and able to speak in complete sentences Discharge Plan Discharge Plan Patient Disposition: Home Discharge orders & Medications Prescriptions: Continued prenat.vits,vero,[id number] Tablet 1 tab PO DAILY Visit Report/Discharge Packet Stand Alone Forms: Patient Portal/API, Stroke Signs & Symptoms
[2023-02-09 15:34] VITALS: BP 131/89; PULSE 90; RESP 16; TEMP 37
== END 2023-02-09 15:14 | disposition home or self-care (01) | DRG 807 ==
PROVIDERS: Student in an Organized Health Care Education/Training Program; Admitting Provider Obstetrics & Gynecology; Referring Provider Obstetrics & Gynecology; Visit Provider Obstetrics & Gynecology
DX: O34.03 Maternal care for unspecified congenital malformation of uterus, third trimester (principal); Z37.0 Single live birth; Z3A.39 39 weeks gestation of pregnancy
CPT/HCPCS: 36415; 59050; 59400; 59409; 76815; 85025; 86850; 86900; 86901; G0379; J2590; S0191